=== PATIENT | female | born 1965 | race Caucasian/White ===

== ENCOUNTER → 2017-07-04 | Day surgery (SDC) | payer MEDICARE, BC ==
[~2017-07-04] MED LIST: ACETAMINOPHEN 1000 MG/100 ML 100 ML IV ONE; ACETAMINOPHEN/HYDROcodone 325 MG/5 MG TAB ONE; BUPIVACAINE/EPINEPHRINE 0.5% PF 10 ML VIAL ONE; LACTATED RINGER'S 1000 ML INJ 1,000 ML ONE; LIDOCAINE 1%/EPINEPHrine 1:100,000 SOLN 30 ML VIAL ONE; MIDAZOLAM HCL 2 MG/2 ML VIAL ONE; ONDANSETRON HCL 4 MG/2 ML VIAL IV PUSH ONE; PROPOFOL 200 MG/20 ML AMP IV ONE; ceFAZolin INJ 1,000 MG VIAL ONE
--- NOTE | 2017-07-04 17:04 | TN ---
cc: SAL DELGADO M.D. 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 POSTOPERATIVE DIAGNOSIS Pending permanent section. PROCEDURE Needle-localized excisional lumpectomy right breast about 12 o'clock position. ANESTHESIA General SURGEON Dr. Delgado INDICATION This is a pleasant 52-year-old female who had the above abnormality found on mammogram and image guided biopsy. Plans were made for wider excision. PROCEDURE The patient taken to the operating room and placed in the supine position. After anesthesia her right chest and breast were prepped with Betadine. She was down in radiology and about the 1 o'clock position a guidewire was placed about 5-6 cm from the nipple-areolar complex coursing in a superior to inferior direction, medial to lateral direction. She was a candidate for the hidden scar surgery. For this reason we injected the area with Marcaine at the nipple-areolar complex from about the 11 o'clock to 2 o'clock position. A curvilinear incision was made. Dissect down underneath the skin up to the entrance of the guidewire. The guidewire is clipped off of the skin. We dissect circumferentially around the guidewire to removing it completely with this tissue involved. We angle it superiorly with a short stitch and a long stitch placed laterally and sent down to radiology where image is done and Dr. Bennett states the area in question appears to be removed. We then irrigate. Hemostasis assured. We then just simply closed the skin with 4-0 Vicryl. Steri-Strips applied. Sterile bandage applied. The patient tolerated the procedure well and no immediate postop complications. Sal Delgado MD JRICH/KK /3:40 PM /4:51 PM
== END | disposition home or self-care (01) ==
LOC: ESDC 09:18
PROVIDERS: ATTEND Surgery
DX: N60.91 Unspecified benign mammary dysplasia of right breast (principal); E11.9 Type 2 diabetes mellitus without complications; Z79.4 Long term (current) use of insulin
CPT/HCPCS: 00400; 19125; 82948; 88307; J0131; J0690; J2250; J2405; J3010; J7120